=== PATIENT | female | born 1940 | race Caucasian/White ===

== ENCOUNTER 2018-03-13 08:33 | Emergency (ER) | payer MEDICARE, OTHER ==
[2018-03-13 08:44] VITALS: BMI 24.7
--- NOTE | 2018-03-13 09:28 | ED PDOC ---
HPI: General Adult Time Seen by Provider: 03/13/18 08:59 Chief Complaint (Nursing): Shortness Of Breath Chief Complaint (Provider): Weakness, Generalized Body Aches History Per: Patient History/Exam Limitations: no limitations Onset/Duration Of Symptoms: Days Current Symptoms Are (Timing): Still Present Additional Complaint(s): 77 year old female with PMHx of arthritis and breast cancer presents to the ER for an evaluation of weakness and body aches onset for a few months. She states she feels tired and her symptoms have worsened since the last 2 weeks. Patient has an appointment with her PMD next week and she reports she has her labs dome today at 0830am before coming to the ER. Patient takes letrozole for breast cancer and she is on hormone therapy. Denies abdominal pain, vomiting, nausea, cough, chest pain, fever or shortness of breath. PMD: Dr. Cano ([facility]) Past Medical History Reviewed: Historical Data, Nursing Documentation, Vital Signs Vital Signs: Last Vital Signs Temp 97.6 F 03/13/18 08:42 Pulse 90 03/13/18 08:42 Resp 18 03/13/18 09:00 BP 106/69 03/13/18 08:42 Pulse Ox 97 03/13/18 09:00 - Medical History PMH: Arthritis, HTN, Hypercholesterolemia Denies: Chronic Kidney Disease - Family History Family History: States: Unknown Family Hx - Living Arrangements Living Arrangements: With Family - Social History Current smoker - smoking cessation education provided: No Alcohol: None Drugs: Denies - Home Medications Home Medications: Ambulatory Orders Medication Instructions Recorded Atorvastatin Calcium [Lipitor] 10 mg PO DAILY 10/05/14 Calcium Carbonate [Calcium] 600 mg PO DAILY 10/05/14 Cholecalciferol [Vitamin D 1000 IU] 1 tab PO DAILY 10/05/14 DULoxetine [Cymbalta] 30 mg PO DAILY 10/05/14 Multivitamin 1 tab PO DAILY 10/05/14 Telmisartan [Micardis] 40 mg PO DAILY 10/05/14 - Allergies Allergies/Adverse Reactions: Allergies Allergy/AdvReac Type Severity Reaction Status Date / Time Sulfa (Sulfonamide Allergy SHORTNESS Verified 03/13/18 08:55 Antibiotics) OF BREATH Review of Systems ROS Statement: Except As Marked, All Systems Reviewed And Found Negative Constitutional: Positive for: Weakness, Other (Tired, body aches). Negative for: Fever Respiratory: Negative for: Cough, Shortness of Breath Gastrointestinal: Negative for: Nausea, Vomiting, Abdominal Pain Neurological: Negative for: Numbness Physical Exam - Reviewed Nursing Documentation Reviewed: Yes Vital Signs Reviewed: Yes - Physical Exam Appears: Positive for: Well, Non-toxic, No Acute Distress Head Exam: Positive for: ATRAUMATIC, NORMAL INSPECTION, NORMOCEPHALIC Skin: Positive for: Normal Color, Warm, Dry. Negative for: Rash Eye Exam: Positive for: EOMI, Normal appearance, PERRL ENT: Positive for: Normal ENT Inspection Neck: Positive for: Normal, Painless ROM, Supple. Negative for: Decreased ROM Cardiovascular/Chest: Positive for: Regular Rate, Rhythm. Negative for: Murmur Respiratory: Positive for: Normal Breath Sounds. Negative for: Decreased Breath Sounds, Wheezing, Respiratory Distress Gastrointestinal/Abdominal: Positive for: Normal Exam, Soft. Negative for: Tenderness, Guarding, Rebound Back: Positive for: Normal Inspection. Negative for: L CVA Tenderness, R CVA Tenderness Extremity: Positive for: Normal ROM. Negative for: Tenderness, Pedal Edema, Deformity Neurologic/Psych: Positive for: Alert, Oriented (x3). Negative for: Motor/Sens ory Deficits - ECG O2 Sat by Pulse Oximetry: 97 (RA) Pulse Ox Interpretation: Normal - Progress Re-evaluation Time: 10:30 Condition: Unchanged Medical Decision Making Medical Decision Making: Time: 0859 Scribe Attestation: Documented by Phyllis Huston, acting as a scribe for Tamara Tierney MD Provider Scribe Attestation: All medical record entries made by the Scribe were at my direction and personally dictated by me. I have reviewed the chart and agree that the record accurately reflects my personal performance of the history, physical exam, medical decision making, and the department course for this patient. I have also personally directed, reviewed, and agree with the discharge instructions and disposition. Disposition - Clinical Impression Clinical Impression: Chronic illness - Patient ED Disposition Is Patient to be Admitted: No Doctor Will See Patient In The: Office Counseled Patient/Family Regarding: Diagnosis, Need For Followup - Disposition Referrals: Porfirio Boswell MD [Primary Care Provider] - Disposition: Routine/Home Disposition Time: 10:15 Condition: STABLE Instructions: Fatigue, When Your Cancer Treatment Makes You Tired Forms: [employer] (Greek) - POA Present On Arrival: None
[2018-03-13 10:40] VITALS: BP 110/63; PULSE 69; RESP 17; TEMP 98.3; O2SAT 98
== END 2018-03-13 10:45 | disposition home or self-care (01) ==
LOC: H.ER 08:33 → SUPCPDRO 08:33 → H.ER 10:45
DX: C50.919 Malignant neoplasm of unspecified site of unspecified female breast (principal); Z79.811 Long term (current) use of aromatase inhibitors; E78.00 Pure hypercholesterolemia, unspecified; I10 Essential (primary) hypertension